=== PATIENT | female | born 1965 | race Caucasian/White ===

== ENCOUNTER 2019-09-17 07:30 | Day surgery (SDC) | payer OTHER ==
[~2019-09-17] VITALS: Ht 160 cm; Wt 71.2 kg
[2019-09-17] MEDS ORDERED: fentaNYL 0.05 MG/ML VIAL ONE (09:28)
[2019-09-17] MEDS: fentaNYL 0.05 MG/ML VIAL IVP ONE (09:35)
[2019-09-17] MEDS: LIDOCAINE 2% 100 MG/5 ML UJET TP ONE (09:41)
== END 2019-09-17 10:35 | disposition home or self-care (01) ==
LOC: MDS 07:30 → MMU 07:30 → MDS 10:35
PROVIDERS: ATTEND Internal Medicine Gastroenterology
DX: Z12.11 Encounter for screening for malignant neoplasm of colon (principal); D12.4 Benign neoplasm of descending colon; E66.3 Overweight; Z90.49 Acquired absence of other specified parts of digestive tract; Z90.710 Acquired absence of both cervix and uterus; Z68.27 Body mass index [BMI] 27.0-27.9, adult
CPT/HCPCS: J3010